=== PATIENT | female | born 1960 ===

== ENCOUNTER 2023-08-10 08:15 | Inpatient (IN) | payer OTHER ==
[~2023-08-10] VITALS: Ht 152.4 cm; Wt 108.0 kg
[2023-08-10] MEDS ORDERED: AVAPRO300 MG PO (10:21)
[2023-08-10] MEDS ORDERED: SYNTHROID125 MCG PO (10:21)
[2023-08-10] MEDS ORDERED: HYDROCHLOROTHIA25 MG PO (10:21)
[2023-08-10] MEDS ORDERED: AMLODIPINE-ATO1 EAC1 PO (10:23)
[2023-08-10] MEDS ORDERED: METFORMIN HCL1000 M2 PO (10:24)
[2023-08-10] MEDS ORDERED: TOPROL XL25 M1 PO (10:24)
[2023-08-10] MEDS ORDERED: FARXIGA10 MG PO (10:24)
[2023-08-16] MEDS ORDERED: CEFOXITIN SODIUM 2,000 MG VIAL IV ONE (07:16)
[2023-08-16] MEDS ORDERED: BUPIVACAINE HCL/PF 0.5% 30ML ML ONE (07:34)
[2023-08-16] MEDS ORDERED: POVIDONE-IODINE 118 ML BOTT TOP ONE (07:34)
[2023-08-16] MEDS ORDERED: NORVASC2.5 MG (08:08)
[2023-08-16] MEDS ORDERED: FARXIGA10 MG (08:16)
[2023-08-16] MEDS ORDERED: SYNTHROID125 MCG (08:17)
[2023-08-16] MEDS ORDERED: THROMBIN,HU/FIBRINOGEN/CALCIUM 4 ML SYRINGE TOP ONE (09:15)
[2023-08-16] MEDS ORDERED: POVIDONE-IODINE 118 ML BOTT TP ONE (09:15)
[2023-08-16] MEDS ORDERED: CEFOXITIN SODIUM 2,000 MG in 0.9 % SODIUM CHLORIDE 100 ML IV ONE (09:15)
[2023-08-16] MEDS ORDERED: VISTASEAL DUAL APPICATOR 1 EACH APPL TOP ONE (09:15)
[2023-08-16] MEDS ORDERED: BUPIVACAINE HCL/PF 0.5% 30ML ML IU ONE (09:15)
[2023-08-16] MEDS ORDERED: RINGERS SOLUTION,LACTATED 1,000 ML IV SCH (10:45)
[2023-08-16] MEDS ORDERED: ONDANSETRON HCL 2 MG/ML VIAL IV PRN (10:45)
[2023-08-16] MEDS ORDERED: MORPHINE SULFATE 4 MG/ML VIAL IV PRN (11:00)
[2023-08-16] MEDS ORDERED: SUGAMMADEX SODIUM 200 MG/2 ML VIAL IV ONE (11:30)
[2023-08-16] MEDS ORDERED: KETOROLAC TROMETHAMINE 30 MG VIAL IV SCH (13:00)
[2023-08-16] MEDS ORDERED: KETOROLAC TROMETHAMINE 30 MG VIAL ONE (13:10)
[2023-08-16] MEDS ORDERED: INSULIN LISPRO 1,000 UNIT/10 ML UNITS SUBCUTANEO PRN (15:30)
[2023-08-16] MEDS ORDERED: DEXTROSE 50 % IN WATER 0.5 G/ML DISP.SYRIN IV PRN (15:30)
[2023-08-16] MEDS ORDERED: CEFOXITIN SODIUM 2,000 MG VIAL IV SCH (17:00)
[2023-08-16 17:14] LABS: HEMATOCRIT 42.6 % (36.0-45.00); MEAN CELL VOLUME 89.5 fL (80.00-100.00); MEAN CORPUSCULAR HEMOGLOBIN 29.4 pg (27.00-32.0); MEAN CORPUSCULAR HGB CONC 32.9 g/dl (32.0-36.0); PLATELET COUNT 239 K/uL (150-450); RED BLOOD COUNT 4.77 M/uL (4.00-6.00); RED CELL DISTRIBUTION WIDTH 14.1 % (11.5-14.5)
[2023-08-16 17:48] LABS: CALCIUM 9.1 mg/dL (8.5-10.1); CREATININE SERUM 0.62 mg/dL (0.55-1.02); GFR 96.91; POTASSIUM 4.17 mEq/L (3.5-5.1)
[2023-08-16] MEDS ORDERED: FAMOTIDINE/PF 20 MG/2 ML VIAL IV SCH (21:00)
[2023-08-16] MEDS ORDERED: DOCUSATE SODIUM 100MG CAP PO SCH (21:00)
[2023-08-17 05:53] LABS: HEMATOCRIT 36.6 % (36.0-45.00); HEMOGLOBIN 12.4 g/dL (12.0-15.00); MEAN CELL VOLUME 90.4 fL (80.00-100.00); MEAN CORPUSCULAR HEMOGLOBIN 30.6 pg (27.00-32.0); MEAN CORPUSCULAR HGB CONC 33.9 g/dl (32.0-36.0); PLATELET COUNT 203 K/uL (150-450); RED BLOOD COUNT 4.05 M/uL (4.00-6.00); RED CELL DISTRIBUTION WIDTH 14.3 % (11.5-14.5)
[2023-08-17] MEDS ORDERED: LEVOTHYROXINE SODIUM 125 MCG TABLET PO SCH (06:00)
[2023-08-17 06:37] LABS: CALCIUM 8.5 mg/dL (8.5-10.1); CREATININE SERUM 0.72 mg/dL (0.55-1.02); GFR 81.55; POTASSIUM 3.61 mEq/L (3.5-5.1)
[2023-08-17] MEDS ORDERED: ENOXAPARIN SODIUM 40 MG/0.4 ML SYRINGE SUBCUTANEO SCH (09:00)
[2023-08-17] MEDS ORDERED: IRBESARTAN 300 MG TABLET PO SCH (09:00)
[2023-08-17] MEDS ORDERED: AMLODIPINE BESYLATE 5 MG TABLET PO SCH (09:00)
[2023-08-17] MEDS ORDERED: METOPROLOL SUCCINATE 25 MG TAB.SR.24H PO SCH (09:00)
== END 2023-08-17 13:20 | disposition home or self-care (01) | DRG 743 ==
LOC: O/R 08-16 05:40 → OB/GYN 08-16 05:40 → SURH 08-16 08:15 → EDBD 08-16 08:15 → SURH 08-16 10:15 → OB/GYN 08-16 15:25
PROVIDERS: Obstetrics & Gynecology; ADMIT Obstetrics & Gynecology Gynecologic Oncology; ATTEND Obstetrics & Gynecology Gynecologic Oncology
PROC: 0UT74ZZ Resection of Bilateral Fallopian Tubes, Percutaneous Endoscopic Approach (ICD-10-PCS; 2023-08-16)
PROC: 0UT24ZZ Resection of Bilateral Ovaries, Percutaneous Endoscopic Approach (ICD-10-PCS; 2023-08-16)
PROC: 0DNW4ZZ Release Peritoneum, Percutaneous Endoscopic Approach (ICD-10-PCS; 2023-08-16)
PROC: 0DNU4ZZ Release Omentum, Percutaneous Endoscopic Approach (ICD-10-PCS; 2023-08-16)
PROC: 8E0W4CZ Robotic Assisted Procedure of Trunk Region, Percutaneous Endoscopic Approach (ICD-10-PCS; 2023-08-16)
PROC: 0UT94ZZ Resection of Uterus, Percutaneous Endoscopic Approach (ICD-10-PCS; principal; 2023-08-16 10:15)
DX: D25.1 Intramural leiomyoma of uterus (principal); N80.03 Adenomyosis of the uterus; N72 Inflammatory disease of cervix uteri; N84.0 Polyp of corpus uteri; N95.1 Menopausal and female climacteric states; Z20.822 Contact with and (suspected) exposure to COVID-19
CPT/HCPCS: 58548; S2900